=== PATIENT | female | born 1980 | race Caucasian/White ===

== ENCOUNTER 2016-11-25 10:42 | Emergency (ER) | payer OTHER ==
[~2016-11-25] VITALS: Ht 165.1 cm; Wt 59.4 kg
[~2016-11-25 10:42] MED LIST: ESCI20TA PO; LITH300T3 PO; LURA40TA PO; QUET400T PO
[2016-11-25] MEDS ORDERED: ACET-73 PO (10:59)
--- NOTE | 2016-11-25 11:13 | NUR ---
DR BAI AT THE BEDSIDE FOR EVAL AND EXAM.
[2016-11-25] MEDS ORDERED: KETOROLAC TROMETHAMINE 30 MG INJ IM ONE (11:30)
--- NOTE | 2016-11-25 11:30 | NUR ---
pt signed consent for waiver, placed in the chart.
[2016-11-25] MEDS ORDERED: KETOROLAC TROMETHAMINE 30 MG INJ ONE (11:40)
--- NOTE | 2016-11-25 12:26 | NUR ---
PT BACK FROM CT, STATES HEADACHE IS BETTER, FAMILY AT THE BEDSIDE.
[2016-11-25 13:42] VITALS: BP 123/77
--- NOTE | 2016-11-25 13:43 | NUR ---
Patient discharged to home in stable conditon. Written and verbal after care instructions given. Patient verbalizes understanding of instructions.
== END 2016-11-25 13:44 | disposition home or self-care (01) ==
LOC: ER 10:42
DX: S06.0X0A Concussion without loss of consciousness, initial encounter (principal); S43.402A Unspecified sprain of left shoulder joint, initial encounter; S80.02XA Contusion of left knee, initial encounter; S70.02XA Contusion of left hip, initial encounter; F41.9 Anxiety disorder, unspecified; F31.9 Bipolar disorder, unspecified; F12.10 Cannabis abuse, uncomplicated; F17.200 Nicotine dependence, unspecified, uncomplicated; V49.40XA Driver injured in collision with unspecified motor vehicles in traffic accident, initial encounter; W22.10XA Striking against or struck by unspecified automobile airbag, initial encounter; Y93.89 Activity, other specified; Y99.8 Other external cause status; Y92.89 Other specified places as the place of occurrence of the external cause
CPT/HCPCS: 70450; 71101; 72125; 73030; 73502; 73562; 96372; 99284; A4663; J1885